=== PATIENT | female | born 2000 | race Caucasian/White ===

== ENCOUNTER → 2022-04-12 | Outpatient (REF) | payer OTHER | LOC: M SFHCDERM 13:02 | PROVIDERS: ATTEND Nurse Practitioner Family | DX: D22.61 Melanocytic nevi of right upper limb, including shoulder (principal) ==

== ENCOUNTER → 2022-06-07 | Outpatient (REF) | payer OTHER | LOC: M LAB REF 15:52 | PROVIDERS: ATTEND Surgery | DX: L90.5 Scar conditions and fibrosis of skin (principal); L98.6 Other infiltrative disorders of the skin and subcutaneous tissue ==